=== PATIENT | male | born 1995 | race Caucasian/White ===

== ENCOUNTER 2018-04-02 03:16 | Emergency (ER) | payer SELFPAY ==
[~2018-04-02] VITALS: Ht 182.9 cm; Wt 98.9 kg
[2018-04-02 03:16] VITALS: BP_SYST 148
== END 2018-04-02 03:47 ==
LOC: SED 03:16
DX: Z02.89 Encounter for other administrative examinations (principal); R03.0 Elevated blood-pressure reading, without diagnosis of hypertension; V43.92XA Unspecified car occupant injured in collision with other type car in traffic accident, initial encounter; Y93.89 Activity, other specified; Y92.89 Other specified places as the place of occurrence of the external cause; Y99.8 Other external cause status
CPT/HCPCS: 99283